=== PATIENT | female | born 1935 | race Two or more races ===

== ENCOUNTER 2016-11-07 07:35 | Emergency (ER) | payer OTHER ==
[~2016-11-07] VITALS: Ht 160 cm; Wt 79.0 kg
[2016-11-07 07:41] VITALS: BP 155/94; PULSE 89; RESP 16; TEMP 98.1; O2SAT 94
[2016-11-07 08:00] LABS: BLOOD, URINE LARGE (NEG); GLUCOSE,URINE 100 mg/dL (NEG); KETONE, URINE TRACE mg/dL (NEG)
[2016-11-07] MEDS ORDERED: METO50TA PO (08:01)
[2016-11-07] MEDS ORDERED: MONT10TA2 PO (08:01)
[2016-11-07] MEDS ORDERED: LISI-515 PO (08:01)
[2016-11-07] MEDS ORDERED: VENTAER INH (08:01)
[2016-11-07 08:08] LABS: NITRITE,URINE POS (NEG)
[2016-11-07 08:09] LABS: METHOD OF COLLECTION CLEAN CATCH; URINE COLOR ORANGE (YELLW/STRAW)
[2016-11-07 08:10] LABS: BACTERIA, URINE MOD /hpf; COMMENT (UR) CULTURE INDICATED; CULTURE IF INDICATED CULTURE INDICATED; RBC, URINE INNUM /hpf (0-3); SQUAMOUS EPITHELIAL CELL URINE 0-5 /hpf (0-5); TRANSITIONAL EPI CELLS, URINE 0-5 /hpf; WBC, URINE INNUM /hpf (0-5)
[2016-11-07] MEDS ORDERED: CEPH-460 PO (08:23)
[2016-11-07] MEDS ORDERED: PYRI200T4 PO (08:23)
--- NOTE | 2016-11-07 08:23 | PD ---
HPI Chief Complaint: Complaint Time Seen by Provider: 08:13 Travel History International Travel<30 days: No Contact w/Intl Traveler<30days: No Traveled to known affect area: No History of Present Illness HPI 81-year-old female complains of dysuria, lower abdominal discomfort. Patient states that she started having low abdominal discomfort yesterday afternoon. Patient started having dysuria since last night. Patient took [id number] Azo at home. Patient denies any fever chills. Patient denies any back pain. Patient denies any nausea vomiting diarrhea. PFSH Past Medical History Hx Anticoagulant Therapy: Yes (81MG ASA) Asthma: Yes Cardiovascular Problems: Yes (HTN; ) Diminished Hearing: No Hypertension: Yes Respiratory: Yes (ASTHMA) Influenza Vaccination: Yes ?: Not Past Surgical History Appendectomy: Yes Cholecystectomy: Yes Hysterectomy: Yes Social History Alcohol Use: No Tobacco Use: No Allergies-Medications (Allergen,Severity, Reaction): Coded Allergies: Sulfa (Verified Allergy, Severe, SWELLING, 11/07/16) Codeine (Verified Allergy, Intermediate, RASH, 11/07/16) Reported Meds & Prescriptions Reported Meds & Active Scripts Active Reported Ventolin Hfa 18 GM Inh (Albuterol Sulfate) 90 Mcg/Act Aer 2 Puff INH Q4-6H PRN Singulair (Montelukast Sodium) 10 Mg Tab 10 Mg PO HS Metoprolol Tartrate 50 Mg Tab 50 Mg PO BID Lisinopril 20 Mg Tab 20 Mg PO BID Review of Systems General / Constitutional: No: Fever Eyes: No: Visual changes HENT: No: Headaches Cardiovascular: No: Chest Pain or Discomfort Respiratory: No: Shortness of Breath Gastrointestinal: Positive: Abdominal Pain Genitourinary: Positive: Dysuria Musculoskeletal: No: Pain Skin: No Rash Neurologic: No: Weakness Psychiatric: No: Depression Endocrine: No: Polydipsia Hematologic/Lymphatic: No: Easy Bruising Physical Exam Narrative GENERAL: Well-nourished, well-developed patient. SKIN: Focused skin assessment warm/dry. HEAD: Normocephalic. EYES: No scleral icterus. No injection or drainage. NECK: Supple, trachea midline. No JVD or lymphadenopathy. CARDIOVASCULAR: Regular rate and rhythm without murmurs, gallops, or rubs. RESPIRATORY: Breath sounds equal bilaterally. No accessory muscle use. GASTROINTESTINAL: Abdomen soft, nondistended. Mild tenderness on palpation right lower abdomen. No rebound tenderness. No mass. MUSCULOSKELETAL: No cyanosis, or edema. BACK: Nontender without obvious deformity. No CVA tenderness. Neurologic exam normal. Data Data Last Documented VS Vital Signs Date Time Temp Pulse Resp B/P Pulse Ox O2 Delivery O2 Flow Rate FiO2 11/07/16 07:41 98.1 89 16 155/94 94 Orders Complete Blood Count With Diff (11/07/16 07:51) Comprehensive Metabolic Panel (11/07/16 07:51) Urinalysis - C+S If Indicated (11/07/16 07:51) Iv Access Insert/Monitor (11/07/16 07:51) Oxygen Administration (11/07/16 07:51) Oximetry (11/07/16 07:51) Lipase (11/07/16 07:51) Urine Culture (11/07/16 07:50) Labs Laboratory Tests Test 11/07/16 07:50 Urine Collection Type CLEAN CATCH Urine Color ORANGE Urine Turbidity MARKED Urine pH 5.0 Urine Specific [place] 1.016 Urine Protein 300 OR GREATER mg/dL Urine Glucose (UA) 100 mg/dL Urine Ketones TRACE mg/dL Urine Occult Blood LARGE Urine Nitrite POS Urine Bilirubin NEG Urine Leukocyte Esterase LARGE Urine RBC INNUM /hpf Urine WBC INNUM /hpf Urine WBC Clumps MOD Urine Squamous Epithelial 0-5 /hpf Cells Urine Transitional Epithelial 0-5 /hpf Cells Urine Amorphous Sediment FEW Urine Bacteria MOD /hpf Microscopic Urinalysis Comment CULTURE INDICATED Urine Collection Time 0750 MDM Medical Decision Making Medical Screen Exam Complete: Yes Emergency Medical Condition: Yes Differential Diagnosis Differential diagnosis including UTI, pyelonephritis, nephrolithiasis, appendicitis, colitis. Narrative Course 81-year-old female with dysuria and lower abdominal discomfort. Keflex 500 mg by mouth given. Diagnosis Primary Impression: UTI (urinary tract infection) Qualified Code: N30.00 - Acute cystitis without hematuria Patient Instructions: General Instructions Additional Instructions: Keflex as directed. Pyridium as directed. Encouraged by mouth fluid. Follow- up with personal physician. Return if worse. Med/Other Pt SpecificInfo: Prescription(s) given Scripts Phenazopyridine (Pyridium)200 Mg [id number] Mg PO Q8H PRN (DYSURIA) #10 TAB Ref 0 Prov:Link Vyas MD 4/9/17 Cephalexin (Keflex)500 Mg [id number] Mg PO Q6H #28 CAP Ref 0 Prov:Link Vyas MD 11/07/16 Disposition: 01 DISCHARGE HOME Condition: Stable Link Vyas MD Nov 07, 2016 08:23
[2016-11-07] MEDS ORDERED: CEPHALEXIN MONOHYDRATE 500 MG CAP PO ONE (08:30)
== END 2016-11-07 08:37 | disposition home or self-care (01) ==
LOC: PHED 07:35
DX: N30.00 Acute cystitis without hematuria (principal); B96.20 Unspecified Escherichia coli [E. coli] as the cause of diseases classified elsewhere
CPT/HCPCS: 81001; 87077; 87086; 87186; 99284